=== PATIENT | female | born 1975 | race Hispanic/Latino ===

== ENCOUNTER 2016-11-15 10:48 | Emergency (ER) | payer SELFPAY ==
[~2016-11-15] VITALS: Ht 144.8 cm; Wt 70.0 kg
[~2016-11-15 10:48] MED LIST: FERR SULFATE325 MG PO; LEVOTHYROXIN50 MCG PO; LORTAB 7.57.5 MG PO; PRE-NATAL PO
[2016-11-15 11:24] LABS: HEMATOCRIT 28.7 % (37.0-47.0); HEMOGLOBIN 8.1 g/dl (12.0-16.0); IMMATURE GRANULOCYTES 0.3 % (0.0-1.0); MEAN CORPUSCULAR HGB 19.5 pG CALC (26.0-32.0); MEAN CORPUSCULAR HGB CONC 28.2 g/L CALC (32.0-36.0); NEUT# 3.77 thou/uL (2.00-7.15); RED BLOOD COUNT 4.16 mill/uL (4.20-5.60); RED CELL DISTRI WIDTH 17.2 % (11.5-15.5)
[2016-11-15 11:39] LABS: ALBUMIN 4.4 g/dL (3.2-5.0); ALKALINE PHOSPHATASE 114 u/l (38-126); AMYLASE 32 u/l (30-110); ANION GAP 16 (6-22 (CALC)); BILIRUBIN, TOTAL 1.4 mg/dL (0.0-1.4); BUN 5 mg/dL (7-17); BUN/CREATININE RATIO 9 (12-20 (CALC)); CARBON DIOXIDE 22 mmol/l (22-30); CHLORIDE 107 mmol/l (95-108); CREATININE 0.5 mg/dL (0.5-1.0); GFR > 60 ML/MIN (>=60 (CALC)); GFR FOR AFR.AMER. > 60 ML/MIN (>=60 (CALC)); GLUCOSE 107 mg/dL (65-105); LIPASE 40 u/l (23-300); POTASSIUM 4.4 mmol/l (3.5-5.1); SGOT/AST 31 u/l (14-36); SGPT/ALT 39 u/l (9-52); SODIUM 141 mmol/l (137-146); TOTAL PROTEIN 7.6 g/dL (6.3-8.2)
[2016-11-15] MEDS ORDERED: NEXIUM40 M1 PO (13:33)
[2016-11-15] MEDS ORDERED: ZOFRAN ODT4 MG PO (13:33)
[2016-11-15 13:40] VITALS: BP 109/65
== END 2016-11-15 13:54 | disposition home or self-care (01) | DRG 392 ==
LOC: ED 10:48
PROVIDERS: Emergency Medicine
DX: R10.13 Epigastric pain (principal); R11.2 Nausea with vomiting, unspecified
CPT/HCPCS: Q9967; S0164

== ENCOUNTER 2018-01-23 21:42 | Emergency (ER) | payer SELFPAY ==
[~2018-01-23] VITALS: Ht 144.8 cm; Wt 61.8 kg
[~2018-01-23 21:42] MED LIST changes: +NEXIUM40 M1 PO; +ZOFRAN ODT4 MG PO
[2018-01-23] MEDS ORDERED: DIFLUCAN150 MG PO (22:54)
[2018-01-23 23:00] VITALS: BP 118/68
== END 2018-01-23 23:00 | disposition home or self-care (01) | DRG 759 ==
LOC: ED 21:42
DX: B37.3 Candidiasis of vulva and vagina (principal)

== ENCOUNTER 2018-04-15 15:00 | Emergency (ER) | payer SELFPAY ==
[~2018-04-15] VITALS: Ht 144.8 cm; Wt 59.6 kg
[~2018-04-15 15:00] MED LIST changes: +DIFLUCAN150 MG PO
[2018-04-15 16:33] LABS: MEAN CELL VOLUME 66.2 fL CALC (80.0-100.0); MEAN CORPUSCULAR HGB 17.3 pG CALC (26.0-32.0); MEAN CORPUSCULAR HGB CONC 26.1 g/L CALC (32.0-36.0); NEUT# 1.14 thou/uL (2.00-7.15); RED BLOOD COUNT 3.7 mill/uL (4.20-5.60); RED CELL DISTRI WIDTH 19.1 % (11.5-15.5)
[2018-04-15] MEDS ORDERED: TAM75CAP PO (16:40)
[2018-04-15 16:45] LABS: HEMATOCRIT 24.5 % (37.0-47.0); HEMOGLOBIN 6.4 g/dl (12.0-16.0)
[2018-04-15 16:52] LABS: ANION GAP 16 (6-22 (CALC)); BUN 7 mg/dL (7-17); BUN/CREATININE RATIO 13 (12-20 (CALC)); CARBON DIOXIDE 22 mmol/l (22-30); CHLORIDE 107 mmol/l (95-108); CREATININE 0.6 mg/dL (0.5-1.0); GFR > 60 ML/MIN (>=60 (CALC)); GFR FOR AFR.AMER. > 60 ML/MIN (>=60 (CALC)); SODIUM 142 mmol/l (137-146)
[2018-04-15 17:01] LABS: POTASSIUM 3.3 mmol/l (3.5-5.1)
[2018-04-15 19:17] VITALS: BP 104/55
[2018-04-15 20:17] VITALS: BP 107/58
[2018-04-15] MEDS ORDERED: FERROUS SULF325 M3 PO (20:28)
[2018-04-15 21:40] VITALS: BP 116/60
[2018-04-15 21:49] VITALS: BP 97/55
[2018-04-15] MEDS ORDERED: AMOXICILLIN500 MG PO (22:02)
[2018-04-15 22:05] VITALS: BP 97/55
== END 2018-04-15 22:05 | disposition home or self-care (01) | DRG 812 ==
LOC: ED 15:00
PROVIDERS: Family Medicine
PROC: 30233N1 Transfusion of Nonautologous Red Blood Cells into Peripheral Vein, Percutaneous Approach (ICD-10-PCS; principal; 2018-04-15)
DX: D64.9 Anemia, unspecified (principal); J02.0 Streptococcal pharyngitis; E03.9 Hypothyroidism, unspecified
CPT/HCPCS: P9016

== ENCOUNTER 2019-02-20 11:35 | Emergency (ER) | payer MEDICAID ==
[~2019-02-20] VITALS: Ht 144.8 cm; Wt 50.0 kg
[~2019-02-20 11:35] MED LIST changes: +AMOXICILLIN500 MG PO; +FERROUS SULF325 M3 PO; +TAM75CAP PO
[2019-02-20 14:24] LABS: IMMATURE GRANULOCYTES 0.4 % (0.0-5.0); MEAN CELL VOLUME 68.8 fL CALC (80.0-100.0); MEAN CORPUSCULAR HGB 19.3 pG CALC (26.0-32.0); NEUT# 4.64 thou/uL (2.00-7.15); RED BLOOD COUNT 4.36 mill/uL (4.20-5.60); RED CELL DISTRI WIDTH 17.2 % (11.5-15.5)
[2019-02-20 14:38] LABS: HEMOGLOBIN 8.4 g/dl (12.0-16.0)
[2019-02-20 14:48] LABS: ALBUMIN 4.3 g/dL (3.2-5.0); ALKALINE PHOSPHATASE 85 u/l (38-126); BUN 5 mg/dL (7-17); BUN/CREATININE RATIO 11 (12-20 (CALC)); CARBON DIOXIDE 20 mmol/l (22-30); CHLORIDE 107 mmol/l (95-108); CREATININE 0.5 mg/dL (0.5-1.0); GFR > 60 ML/MIN (>=60 (CALC)); GFR FOR AFR.AMER. > 60 ML/MIN (>=60 (CALC)); LIPASE 57 u/l (23-300); SGOT/AST 20 u/l (14-36); SODIUM 138 mmol/l (137-146); TOTAL PROTEIN 7.9 g/dL (6.3-8.2)
[2019-02-20 14:49] LABS: ANION GAP 15 (6-22 (CALC))
[2019-02-20 15:04] LABS: URINE BILIRUBIN - DIPSTICK NEGATIVE (NEGATIVE); URINE BLOOD DIPSTICK NEGATIVE (NEGATIVE); URINE COLOR YELLOW; URINE GLUCOSE - DIPSTICK NEGATIVE (NEGATIVE); URINE KETONE NEGATIVE (NEGATIVE); URINE NITRITE - DIPSTICK NEGATIVE (Negative); URINE PH 7.5 (4.5-8.0); URINE PROTEIN - DIPSTICK NEGATIVE (NEG-TRACE); URINE SPECIFIC GRAVITY 1.025; URINE UROBILINOGEN - DIPSTICK 0.2 E.U./dL (0.2)
[2019-02-20 15:09] LABS: URINE LEUK ESTERASE SMALL (NEGATIVE)
[2019-02-20 15:22] LABS: URINE SQUAMOUS EPITHELIAL CELL FEW EPI/hpf (0-FEW)
[2019-02-20] MEDS ORDERED: KEFLEX500 M1 PO (15:43)
[2019-02-20] MEDS ORDERED: PROTONIX40 M2 PO (15:43)
[2019-02-20] MEDS ORDERED: ZOFRAN4 MG/TAB PO (15:43)
[2019-02-20 15:58] VITALS: BP 108/64
== END 2019-02-20 16:01 | disposition home or self-care (01) | DRG 392 ==
LOC: ED 11:35
DX: R10.13 Epigastric pain (principal); R11.2 Nausea with vomiting, unspecified; N39.0 Urinary tract infection, site not specified; E03.9 Hypothyroidism, unspecified